=== PATIENT | male | born 1990 | race Caucasian/White ===

== ENCOUNTER 2016-11-12 12:54 | Inpatient (IN) | payer MEDICAID, OTHER ==
[~2016-11-12] VITALS: Ht 170.2 cm; Wt 49.5 kg
[2016-11-12 13:28] LABS: BASOPHILS % (AUTO) 0.5 % (0.0-2.0); EOSINOPHILS % (AUTO) 1.2 % (1.0-6.0); HEMATOCRIT 45.1 % (41-53); HEMOGLOBIN 14.6 g/dL (13.5-17.5); LYMPHOCYTES # (AUTO) 1.8 K/uL (1.0-4.8); MEAN CORPUSCULAR HEMOGLOBIN 29.9 pg (26.0-34.0); MEAN CORPUSCULAR HGB CONC 32.4 G/dL (31.0-37.0); MEAN CORPUSCULAR VOLUME 92 fL (80-100); MONOCYTES # (AUTO) 0.5 K/uL (0.1-1.0); MONOCYTES % (AUTO) 7.7 % (2.0-9.0); NEUTROPHILS # (AUTO) 4.6 K/uL (1.8-7.7); NEUTROPHILS % (AUTO) 64.6 % (40.0-70.0); PLATELET COUNT (AUTO) 323 K/uL (150-450); RED BLOOD CELL COUNT(AUTO) 4.88 MIL/uL (4.50-5.90); RED CELL DISTRIBUTION WIDTH 13.5 % (11.5-14.5); WHITE BLOOD COUNT (AUTO) 7.1 K/uL (4.5-11.0)
[2016-11-12 13:35] LABS: ANION GAP 10 mmol/L (8-16); CALCIUM, TOTAL 9.2 mg/dL (8.8-10.5); CARBON DIOXIDE 31 mmol/L (22-29); CHLORIDE 101 mmol/L (98-107); CREATININE 0.94 mg/dL (0.60-1.30); GLOMERULAR FILTR. RATE CALC > 60 mL/min (>60); POTASSIUM 3.7 mmol/L (3.5-5.1); SODIUM SERUM 142 mmol/L (136-145); UREA NITROGEN, BLOOD 16 mg/dL (7-18)
[2016-11-12 13:41] LABS: ALANINE AMINOTRANSFERASE 30 U/L (12-78); ALBUMIN 4.4 g/dL (3.4-5.0); ASPARTATE AMINOTRANSFERASE 20 U/L (15-37); BILIRUBIN,TOTAL 0.5 mg/dL (0.1-1.0); TOTAL PROTEIN, SERUM 8.2 g/dL (6.4-8.2)
[2016-11-12] MEDS ORDERED: HALOPERIDOL 5 MG TABLET PO PRN (14:15)
[2016-11-12] MEDS ORDERED: ZOLPIDEM TARTRATE 10 MG TABLET PO PRN (14:15)
[2016-11-12] MEDS ORDERED: LORazepam 2 MG TABLET PO PRN (14:15)
[2016-11-12] MEDS ORDERED: HALOPERIDOL 5 MG TABLET PO ONE (15:30)
[2016-11-12] MEDS ORDERED: LORazepam 2 MG TABLET PO ONE (15:30)
[2016-11-12 17:07] VITALS: BP 129/79
[2016-11-13] MEDS ORDERED: ONDANSETRON HCL 4 MG TABLET PO PRN (08:45)
[2016-11-13] MEDS ORDERED: BACITRACIN 28.4 GM OINTMENT TP PRN (08:45)
[2016-11-13] MEDS ORDERED: CloNIDine HCL 0.1 MG TABLET PO PRN (08:45)
[2016-11-13] MEDS ORDERED: MAG HYDROX/AL HYDROX/SIMETH ES 30 ML SUSPENSION UDCUP PO PRN (08:45)
[2016-11-13] MEDS ORDERED: ALBUTEROL SULFATE HFA 90 MCG/PUFF 8 GM INHALER IH PRN (08:45)
[2016-11-13] MEDS ORDERED: IBUPROFEN 600 MG TABLET PO PRN (08:45)
[2016-11-13] MEDS ORDERED: MAGNESIUM HYDROXIDE SUSPENSION 30 ML UDCUP PO PRN (08:45)
[2016-11-13] MEDS ORDERED: BENZOCAINE/MENTHOL LOZENGE [8 LOZENGES/PACKET] MM PRN (08:45)
[2016-11-13] MEDS ORDERED: LOPERAMIDE HCL 2 MG CAPSULE PO PRN (08:45)
[2016-11-13] MEDS ORDERED: PETROLATUM,WHITE 71 GM JELLY TP PRN (08:45)
[2016-11-13] MEDS ORDERED: ACETAMINOPHEN 325 MG TABLET PO PRN (08:45)
[2016-11-13 09:00] VITALS: BP 134/59
[2016-11-13 17:11] VITALS: BP 132/67
[2016-11-13] MEDS: RisperiDONE 1 MG TABLET PO SCH (21:50)
[2016-11-14 08:02] VITALS: BP 116/77
[2016-11-14 18:19] VITALS: BP 121/59
[2016-11-14] MEDS: RisperiDONE 1 MG TABLET PO SCH (20:24)
[2016-11-15 08:06] VITALS: BP 108/62
[2016-11-15] MEDS ORDERED: RISP0.5T13 PO (10:47)
== END 2016-11-15 13:00 | disposition home or self-care (01) | DRG 776 ==
LOC: EEVIPCON 12:56 → EMS 12:56 → 3EI 15:52
DX: F19.959 Other psychoactive substance use, unspecified with psychoactive substance-induced psychotic disorder, unspecified (principal); R45.850 Homicidal ideations; G47.00 Insomnia, unspecified; F15.90 Other stimulant use, unspecified, uncomplicated; F17.200 Nicotine dependence, unspecified, uncomplicated; Z71.51 Drug abuse counseling and surveillance of drug abuser; Z71.6 Tobacco abuse counseling; Z71.3 Dietary counseling and surveillance; Z91.5 Personal history of self-harm; Z79.899 Other long term (current) drug therapy; Z28.21 Immunization not carried out because of patient refusal
CPT/HCPCS: 99285; G0480